=== PATIENT | male | born 1970 ===

== ENCOUNTER 2025-07-15 06:16 | Day surgery (SDC) | payer OTHER, SELFPAY | END 2025-07-15 11:38 | disposition home or self-care (01) | LOC: GI 06:16 | PROVIDERS: ATTENDING PHYSICIAN Internal Medicine Gastroenterology | DX: Z12.11 Encounter for screening for malignant neoplasm of colon (principal); K57.30 Diverticulosis of large intestine without perforation or abscess without bleeding; K64.8 Other hemorrhoids | CPT/HCPCS: G0121 ==